=== PATIENT | female | born 1965 | race African-American/Black ===

== ENCOUNTER 2019-05-22 10:52 | Emergency (ER) | payer OTHER ==
[~2019-05-22] VITALS: Ht 162.6 cm; Wt 117.0 kg
[2019-05-22] MEDS ORDERED: TRAMADOL 50 MG50 MG PO (11:21)
[2019-05-22] MEDS ORDERED: ALBUTEROL2.5 MG/31 INH (11:21)
[2019-05-22] MEDS ORDERED: NORFLEX100 MG PO (11:21)
[2019-05-22] MEDS ORDERED: BUTALB-APAP-CA1 EACH PO (11:22)
[2019-05-22] MEDS ORDERED: FLEXERIL PO (11:22)
[2019-05-22] MEDS ORDERED: NORVASC 2.5 MG2.5 M1 PO ×2 (11:22)
[2019-05-22] MEDS ORDERED: GLYBURIDE 5 MG T5 M1 PO (11:23)
[2019-05-22] MEDS ORDERED: LEXAPRO 10 MG T10 M1 PO (11:23)
[2019-05-22] MEDS ORDERED: HYDROCHLOROTHIA25 M2 PO (11:23)
[2019-05-22] MEDS ORDERED: METFORMIN HCL500 M3 PO (11:24)
[2019-05-22] MEDS ORDERED: SINGULAIR 10 MG10 MG PO (11:24)
[2019-05-22] MEDS ORDERED: METHYLPREDNISOL32 MG PO (11:24)
[2019-05-22] MEDS ORDERED: RAYOS5 MG PO (11:25)
[2019-05-22 14:26] VITALS: BP 160/92
== END 2019-05-22 14:35 | disposition home or self-care (01) ==
LOC: ER 10:52
DX: M25.551 Pain in right hip (principal); M79.661 Pain in right lower leg; J45.909 Unspecified asthma, uncomplicated; E11.9 Type 2 diabetes mellitus without complications; Z88.0 Allergy status to penicillin; Z88.1 Allergy status to other antibiotic agents; Z88.8 Allergy status to other drugs, medicaments and biological substances